=== PATIENT | female | born 1970 | race Two or more races ===

== ENCOUNTER 2017-05-19 17:38 | Emergency (ER) | payer MEDICAID ==
[~2017-05-19] VITALS: Ht 157.5 cm; Wt 78.1 kg
[~2017-05-19 17:38] MED LIST: ALBU18HF INH
[2017-05-19 17:40] VITALS: BP 134/80
[2017-05-19 18:37] LABS: HEMATOCRIT 42.2 % (34.6-47.8); HEMOGLOBIN 14.1 g/dL (11.7-16.4); WHITE BLOOD COUNT 14.2 x10^3/uL (3.4-10)
[2017-05-19 18:45] LABS: ASPARTATE AMINO TRANSFERASE 7 U/L (15-37); BLOOD UREA NITROGEN 20 mg/dL (7-18)
== END 2017-05-19 19:33 | disposition home or self-care (01) ==
LOC: ED 19:20
DX: M79.662 Pain in left lower leg (principal); M25.562 Pain in left knee; I10 Essential (primary) hypertension
CPT/HCPCS: 36415; 80053; 85025; 99285